=== PATIENT | male | born 1980 | race Caucasian/White ===

== ENCOUNTER 2022-11-25 22:45 | Emergency (ER) | payer SELFPAY ==
[~2022-11-25] VITALS: Ht 180.3 cm; Wt 71.7 kg
[2022-11-26] MEDS ORDERED: IV NS 0.9% 1,000 ML BAG IV ONE
[2022-11-26 00:11] LABS: BASOPHILS % (AUTO) 0.5 % (0.0-2.0); EOSINOPHILS % (AUTO) 0.2 % (0.0-6.0); HEMATOCRIT 39 % (39-51); HEMOGLOBIN 12.9 g/dL (13.5-17.5); LYMPHOCYTES # (AUTO) 1.4 K/uL (0.8-4.8); LYMPHOCYTES % (AUTO) 36.5 % (20.0-44.0); MEAN CORPUSCULAR HEMOGLOBIN 31 PG (26.0-33.0); MEAN CORPUSCULAR HGB CONC 33 g/dl (31.0-36.0); MEAN CORPUSCULAR VOLUME 93 fL (80-96); MONOCYTES # (AUTO) 0.5 K/uL (0.1-1.30); MONOCYTES % (AUTO) 12.9 % (2.0-12.0); NEUTROPHILS # (AUTO) 1.9 K/uL (1.8-8.9); NEUTROPHILS % (AUTO) 49.9 % (43.0-81.0); PLATELET COUNT (AUTO) 226 K/uL (150-450); RED BLOOD CELL COUNT(AUTO) 4.22 MIL/uL (4.5-6.0); WHITE BLOOD COUNT (AUTO) 3.7 K/uL (4.3-11.0)
[2022-11-26 00:31] LABS: PARTIAL THROMBOPLASTIN TIME 29.7 SEC (24.3-34.3); PROTHROMBIN TIME 10.6 SECS (9.2-11.1)
[2022-11-26 00:45] LABS: CALCIUM, SERUM 8.5 mg/dL (8.5-10.1); CREATININE 1.1 mg/dL (0.6-1.3); POTASSIUM 3.6 mmol/L (3.5-5.1)
[2022-11-26] MEDS ORDERED: LACT10SO3 PO (06:09)
[2022-11-26 06:23] VITALS: BP 99/70; TEMP 98.7; O2SAT 99
== END 2022-11-26 06:24 | disposition home or self-care (01) ==
LOC: ER 22:50
DX: K59.00 Constipation, unspecified (principal); R06.02 Shortness of breath
CPT/HCPCS: 99285; 74176; 96360; 71045; 93005; 85025; 80048; 36415; 85730; J7030